=== PATIENT | female | born 1960 | race Caucasian/White ===

== ENCOUNTER 2018-01-10 06:22 | Day surgery (SDC) | payer OTHER ==
[2018-01-02 12:05] LABS: BASOPHILS % (AUTO) 0.6 % (0-1); EOSINOPHILS # (AUTO) 0.2 X10'3 (0-0.9); EOSINOPHILS % (AUTO) 3.2 % (0-6); LYMPHOCYTES # (AUTO) 1.3 X10'3 (1.1-4.8); LYMPHOCYTES % (AUTO) 24.1 % (21-51); MEAN CORPUSCULAR HEMOGLOBIN 27.6 PG (27.0-31.0); MEAN CORPUSCULAR HGB CONC 33.6 % (33.0-36.5); MEAN CORPUSCULAR VOLUME 82.2 FL (78-98); MEAN PLATELET VOLUME 8.3 FL (7.4-10.4); MONOCYTES # (AUTO) 0.6 X10'3 (0-0.9); MONOCYTES % (AUTO) 11.4 % (2-12); NEUTROPHILS # (AUTO) 3.3 X10'3 (1.8-7.7); NEUTROPHILS % (AUTO) 60.7 % (42-75); PRE OP HEMATOCRIT 38.9 % (35.0-45.0); PRE OP HEMOGLOBIN 13.1 g/dL (12.0-16.0); PRE OP PLATELET COUNT 262 X10'3 (140-440); RED BLOOD COUNT 4.73 X10'6 (4.20-5.60); RED CELL DISTRIBUTION WIDTH 16.4 % (11.5-14.5)
[2018-01-02 12:14] LABS: PRE OP PROTIME 9.8 SECONDS (9.0-12.0)
[2018-01-02 12:19] LABS: ALBUMIN 4.2 G/DL (3.4-5.0); ALBUMIN/GLOBULIN RATIO 1.3 (1.1-1.5); ALKALINE PHOSPHATASE 87 IU/L (46-116); BLOOD UREA NITROGEN 16 MG/DL (7-18); BUN/CREATININE RATIO 20.8 (6.6-38.0); CALCIUM 9.4 MG/DL (8.5-10.1); CHLORIDE 104 MMOL/L (99-107); CREATININE 0.77 MG/DL (0.40-0.90); PRE OP ALT 41 U/L (30-65); PRE OP ANION GAP 8 (8-16); PRE OP AST 26 U/L (10-37); PRE OP BILIRUB, TOTAL 0.6 MG/DL (0.0-1.0); PRE OP GLUCOSE 93 MG/DL (70-104); PRE OP POTASSIUM 3.8 MMOL/L (3.4-5.1); PRE OP SODIUM 142 MMOL/L (135-145); TOTAL CARBON DIOXIDE 30.2 MMOL/L (24-32); TOTAL PROTEIN 7.5 G/DL (6.4-8.2); eGFR 77 ML/MIN
[2018-01-10] VITALS (12 sets, daily range): BP systolic 116–147; BP diastolic 55–89
[~2018-01-10] VITALS: Ht 171.4 cm; Wt 129.9 kg
[~2018-01-10 06:22] MED LIST: CLINDAmcin 900mg/NS 50ml IVPB 50 ML IV ONE; HYDR12.5 PO; LIDOcaine 1% (10mg/ml) 2ml vial ONE; LINO1LIQ PO; famotidine 20mg tablet PO ONE; ringers solution, lacted 1,000 ML IV SCH; vancomycin inj 1,500 MG in normal saline 300ml IV soln IV ONE
[2018-01-10] MEDS ORDERED: BUPIVAcaine/PF 2.5mg/ml (0.25%) 10ml vial ONE (06:40)
[2018-01-10] MEDS ORDERED: cloNIDine hcl/PF 100mcg/ml inj ONE (07:26)
[2018-01-10] MEDS ORDERED: midazolam 2 mg/2 ml injection ONE (07:28)
[2018-01-10] MEDS ORDERED: BUPIVAcaine/PF 7.5mg/ml (0.75%) 10ml vial ONE (07:28)
[2018-01-10] MEDS ORDERED: fentaNYL /PF 50mcg/ml 5ml ampule ONE (07:28)
[2018-01-10] MEDS ORDERED: LIDOcaine 1%/PF 5ML 10 MG/ML VIAL ONE (07:30)
[2018-01-10] MEDS ORDERED: propofol inj 20 ML IV ONE (07:30)
[2018-01-10] MEDS ORDERED: dexamethasone sod phosphate 4mg/ml inj. ONE (07:45)
[2018-01-10] MEDS ORDERED: ondansetron/PF 4mg/2ml inj ONE (07:45)
[2018-01-10] MEDS ORDERED: 0.9 % SODIUM CHLORIDE 10 ML VIAL ONE (07:45)
[2018-01-10] MEDS ORDERED: ringers solution, lacted 1,000 ML IV SCH (08:05)
[2018-01-10] MEDS ORDERED: meperidine/PF 25mg/ml syringe IV PRN ×3 (08:05)
[2018-01-10] MEDS ORDERED: proCHLORperazine 10 MG/2 ml inj IV PRN (08:05)
[2018-01-10] MEDS ORDERED: ondansetron/PF 4mg/2ml inj IV PRN (08:05)
[2018-01-10] MEDS ORDERED: morphine 4 MG/ML inj SYRINge IV PRN ×2 (08:05)
== END 2018-01-10 11:09 | disposition home or self-care (01) ==
LOC: PAS 06:22
PROVIDERS: ATTEND Orthopaedic Surgery
DX: M20.41 Other hammer toe(s) (acquired), right foot (principal); M77.41 Metatarsalgia, right foot; E66.01 Morbid (severe) obesity due to excess calories; J45.998 Other asthma; K21.9 Gastro-esophageal reflux disease without esophagitis; F10.10 Alcohol abuse, uncomplicated; Z68.41 Body mass index [BMI] 40.0-44.9, adult; Z90.89 Acquired absence of other organs; Z90.49 Acquired absence of other specified parts of digestive tract; Z79.01 Long term (current) use of anticoagulants; Z88.0 Allergy status to penicillin; Z88.1 Allergy status to other antibiotic agents; Z91.018 Allergy to other foods; Z86.79 Personal history of other diseases of the circulatory system; Z87.891 Personal history of nicotine dependence; Z86.711 Personal history of pulmonary embolism; Z87.09 Personal history of other diseases of the respiratory system; Z98.890 Other specified postprocedural states; Z79.899 Other long term (current) drug therapy; Z82.49 Family history of ischemic heart disease and other diseases of the circulatory system; Z84.89 Family history of other specified conditions
CPT/HCPCS: 28285; 28308; 36415; 80053; 85025; 85610; 85730; 93005; A6222; A6449; C1713; J0735; J1100; J2001; J2250; J2405; J2704; J3010; J3370; J3490; A7000; J7120; L4360

== ENCOUNTER 2021-05-29 14:53 | Emergency (ER) | payer MEDICAID, OTHER ==
[~2021-05-29] VITALS: Ht 170.2 cm; Wt 125.0 kg
[~2021-05-29 14:53] MED LIST changes: -CLINDAmcin 900mg/NS 50ml IVPB 50 ML IV ONE; -LIDOcaine 1% (10mg/ml) 2ml vial ONE; -famotidine 20mg tablet PO ONE; -ringers solution, lacted 1,000 ML IV SCH; -vancomycin inj 1,500 MG in normal saline 300ml IV soln IV ONE
[2021-05-29] MEDS ORDERED: HYDROcodone/acetaminophen 10/325mg tab PO ONE (15:50)
[2021-05-29] MEDS ORDERED: ketorolac trometh. 30mg/ml inj. IM ONE (15:50)
[2021-05-29] MEDS ORDERED: ondansetron 4mg rapidly disintigrating tab PO ONE (15:50)
[2021-05-29] MEDS ORDERED: ONDA4TAB12 PO (15:53)
[2021-05-29] MEDS ORDERED: HYDR-3965 PO ×2 (15:53→15:55)
[2021-05-29 16:13] VITALS: BP 132/78
== END 2021-05-29 16:15 | disposition home or self-care (01) ==
LOC: ER 14:53
DX: M25.551 Pain in right hip (principal); J45.909 Unspecified asthma, uncomplicated; G89.29 Other chronic pain; Z88.0 Allergy status to penicillin; Z88.1 Allergy status to other antibiotic agents; Z86.711 Personal history of pulmonary embolism; Z79.899 Other long term (current) drug therapy
CPT/HCPCS: 73502; 96372; 99283; J1885

== ENCOUNTER 2024-10-16 09:30 | Day surgery (SDC) | payer MEDICARE, MEDICAID ==
[2024-10-08 11:23] LABS: MEAN PLATELET VOLUME 8.9 FL (7.4-10.4); PRE OP HEMATOCRIT 43.2 % (35.0-45.0); PRE OP HEMOGLOBIN 14.6 g/dL (12.0-16.0); PRE OP PLATELET COUNT 257 X10'3 (140-440); PRE OP WHITE BLOOD COUNT 7.3 10'3 (4.8-10.8); RED CELL DISTRIBUTION WIDTH 15.1 % (11.5-14.5)
[2024-10-08 11:24] LABS: LEUKOCYTE ESTERASE ,URINE NEGATIVE (Neg); NITRITES, URINE NEGATIVE (Neg); OCCULT BLOOD,URINE NEGATIVE (Neg)
[2024-10-08 11:28] LABS: UA COLLECTION TYPE NON-SPECIFIED
[2024-10-08 11:30] LABS: SQUAMOUS EPITHELIAL CELL,UR MANY /LPF (FEW)
[2024-10-08 11:43] LABS: CREATININE 0.85 MG/DL (0.40-0.90); PRE OP ALT 25 U/L (30-65); PRE OP AST 17 U/L (10-37); PRE OP BILIRUB, TOTAL 0.5 MG/DL (0.0-1.0); PRE OP GLUCOSE 94 MG/DL (70-104); PRE OP POTASSIUM 4.7 MMOL/L (3.4-5.1); TOTAL CARBON DIOXIDE 31.3 MMOL/L (24-32); eGFR 67 ML/MIN
[2024-10-08 11:49] LABS: PRE OP ANION GAP 4 (8-16); PRE OP SODIUM 139 MMOL/L (135-145)
[2024-10-16] VITALS (7 sets, daily range): BP systolic 111–148; BP diastolic 57–77; PULSE 67–76; RESP 12–16; TEMP 99.4; O2SAT 94–99
[~2024-10-16] VITALS: Ht 170.2 cm; Wt 99.4 kg
[~2024-10-16 09:30] MED LIST changes: -HYDR12.5 PO; -LINO1LIQ PO; +NO HOME MEDS; +enalaprilat 1.25mg/ml 2ml vial IV PRN; +labetalol 20mg/4ml (5mg/ml) syringe IV PRN; +meperidine/PF 25mg/ml syringe IV PRN; +morphine 4 MG/ML inj SYRINge IV PRN; +ondansetron/PF 4mg/2ml inj IV PRN
[2024-10-16] MEDS ORDERED: BUPIVAcaine/PF 2.5mg/ml (0.25%) 10ml vial ONE (10:02)
[2024-10-16] MEDS ORDERED: bacitracin 15gm ointment TP ONE (10:02)
[2024-10-16] MEDS: ringers solution, lacted 1,000 ML IV SCH ×2 (10:24→10:28)
[2024-10-16] MEDS: ceFAZolin 2gm/dext,iso 50mL 50 ML IV ONE (11:11)
[2024-10-16] MEDS ORDERED: fentaNYL/PF 50MCG/1 ML 2ML syringe ONE (11:21)
[2024-10-16] MEDS ORDERED: midazolam 1 mg/ML 2ml injection ONE (11:21)
[2024-10-16] MEDS: bacitracin 15gm ointment TP ONE (11:49)
[2024-10-16] MEDS ORDERED: LIDOcaine 2% (20mg/ml) 5ml vial ONE (11:52)
[2024-10-16] MEDS ORDERED: propofol inj 20 ML IV ONE (11:52)
[2024-10-16] MEDS ORDERED: ondansetron/PF 4mg/2ml inj ONE (11:53)
[2024-10-16] MEDS ORDERED: BUPIVAcaine/PF 7.5mg/ml (0.75%) 10ml vial ONE (11:53)
--- NOTE | 2024-10-16 11:58 | ANESTHESIA RECORDS ---
Nerve Block Providers to [facility] Diagnosis: Nerve Block requested by: ANDREW HERNANDEZ DPLian Neuraxial/Peripheral Nerve Block requested for Post-operative analgesia by Physician above DIAGNOSIS: Post-operative pain. (Body Area) Shoulder: [ ] Arm: [ ] Hand: [ ] Hip: [ ] Knee: [ ] Ankle: [ ] Foot: [ Right ] Leg: [ ] Abdomen: [ ] Other: [ ] Post-operative pain expected to be/is inadequately managed by oral or IV medicines. Regional anesthetic expected to facilitate rehabilitation and/or discharge from facility. Other:[ ] Procedure Performed: Ankle Posterior tibial: Right Ankle Superficial Peroneal: Right Ankle Deep Peroneal: Right Ankle Sural & Sapenous Nerve: Right Time out Done?: Yes Time of Time out: 11:28 Procedure Details: PROCEDURE DETAILS: Risks, benefits and alternatives explained Informed consent obtained, and patient wishes to proceed Conscious sedation with indicated monitors Patient positioned, pertinent anatomy defined, sterile technique used Needle used: [ ] 3 1/8 inch Stimuplex Ultra 22ga [ ] 4 inch Stimuplex Ultra 20ga [ ] 6 inch Stimuplex Ultra 20ga [ ] 6 inch, Quikbloc over the needle catheter set 20ga [ ] 4 inch Quikbloc over the needle catheter set 20ga [x ]Other: [__# 23 1.5" needle ] Loss of twitch @ [____N/A ]mA [x ] Single Injection [ ] Catheter Ultrasound Guidance Used: [x ] Yes [ ] No Attempts:[ ] Medicines injected: [ x ]Clonidine Amt:[ 30 mcgs ] [x ]Dexamethasone Amt:[___2mgs ] [x ]Ropivacaine Amt:[ ] [x ]Bupivacaine Amt:[___0.4% 15 cc ] [ ]Lidocaine Amt:[ ] [ ]Exparel 1.33%:[ ] [ ]Epinephrine Amt[ ] [ ]Other: [ ] Intermittent aspiration during local anesthetic administration No symptoms of intraneural or intravenous injection Patient tolerated procedure well Comments Right Ankle Block: Pts ankle and foot prepped with Betadine, Local anesthetic mixture is injected in divided doses to block the 1) post Tibial never behind Medial malleolus,2) Superficial saphenous nerves in front of ankle are blocked by circumferential subcutaneous injection of 1015 mL of local anesthetic along with a line just proximal to the malleoli and anterior from the Achilles tendon medially to laterally , 3) Deep peroneal nerve was blocked with 5 cc of local anesthetic mixture deep to extensor retinaculum just lateral to the extensor hallucis longus tendon. TONY ANGEL MD Oct 16, 2024 11:58
[2024-10-16] MEDS ORDERED: acetaminophen 1,000mg/100ml IV 100 ML IV ONE (12:30)
== END 2024-10-16 13:28 | disposition home or self-care (01) ==
LOC: PAS 09:30
PROVIDERS: ATTEND Podiatrist Foot & Ankle Surgery
DX: T84.84XA Pain due to internal orthopedic prosthetic devices, implants and grafts, initial encounter (principal); M62.461 Contracture of muscle, right lower leg; M79.671 Pain in right foot; M21.6X1 Other acquired deformities of right foot; M77.41 Metatarsalgia, right foot; G89.18 Other acute postprocedural pain; E66.01 Morbid (severe) obesity due to excess calories; G62.9 Polyneuropathy, unspecified; I25.2 Old myocardial infarction; Z90.89 Acquired absence of other organs; Z90.49 Acquired absence of other specified parts of digestive tract; Z96.652 Presence of left artificial knee joint; Z88.0 Allergy status to penicillin; Z91.041 Radiographic dye allergy status; Y79.2 Prosthetic and other implants, materials and accessory orthopedic devices associated with adverse incidents; Y92.89 Other specified places as the place of occurrence of the external cause
CPT/HCPCS: 20680; 36415; 64450; 73620; 76942; 80053; 81001; 82948; 85025; A4215; A4618; A6223; A6402; A6449; A7000; J0131; J2003; J2175; J2250; J2405; J2704; J3010; J3490; J7030; J7120; Z7506; Z7508; Z7512; Z7610; 76000